=== PATIENT | female | born 2000 | race Native Hawaiian/Other Pacific Islander ===

== ENCOUNTER 2021-05-04 08:00 | Outpatient (CLI) | payer MEDICAID | END 2021-05-04 23:59 | LOC: LAB 08:00 | PROVIDERS: ATTEND Physician Assistant Medical | DX: U07.1 COVID-19 (principal) ==

== ENCOUNTER 2021-10-03 08:00 | Outpatient (CLI) | payer OTHER ==
--- NOTE | 2021-10-03 18:37 | XRAY Report ---
PROCEDURE: Ankle 3 View LT INDICATIONS: SPRAIN OF LEFT ANKLE TECHNIQUE: 3 views of the ankle were acquired. COMPARISON: None FINDINGS: Bones: No fractures or dislocations. Ankle mortise is normally aligned. No suspicious bony lesions . Soft tissues: Mild lateral ankle soft tissue swelling is seen. No tibiotalar joint effusion. Achill es tendon appears normal. IMPRESSION: Mild lateral ankle soft tissue swelling. No acute ankle fracture or dislocation. Ankle m ortise is congruent. Reviewed by: J Carlos Barron MD on 10/03/2021 6:35 PM PDT Approved by: J Carlos Barron MD on 10/03/2021 6:35 PM PDT Station ID: [id number]
== END 2021-10-03 23:59 | disposition home or self-care (01) ==
LOC: DI.N 08:00
PROVIDERS: ATTEND Family Medicine
DX: S93.492D Sprain of other ligament of left ankle, subsequent encounter (principal); M79.89 Other specified soft tissue disorders